=== PATIENT | female | born 1995 | race Hispanic/Latino ===

== ENCOUNTER 2021-07-22 11:43 | Emergency (ER) | payer SELFPAY ==
[2021-07-22 11:48] VITALS: BP 148/92
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
== END 2021-07-22 12:30 | disposition left against medical advice (07) ==
LOC: ED 11:43
DX: S00.01XA Abrasion of scalp, initial encounter (principal); M54.2 Cervicalgia; M25.511 Pain in right shoulder; Y08.89XA Assault by other specified means, initial encounter; Y93.89 Activity, other specified; Y92.89 Other specified places as the place of occurrence of the external cause; Y99.8 Other external cause status
CPT/HCPCS: 99282

== ENCOUNTER 2021-08-20 01:13 | Emergency (ER) | payer SELFPAY ==
[2021-08-20 01:40] LABS: Alanine Aminotransferase 9 units/L (7-56); Albumin 4.4 g/dL (3.9-5); Blood Urea Nitrogen 6 mg/dL (7-17); Calcium 9.4 mg/dL (8.4-10.2)
[2021-08-20 01:41] LABS: BUN/Creatinine Ratio 9
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
[2021-08-20] MEDS ORDERED: SODIUM CHLORIDE 0.9% 1000 ML 1,000 ML IV ONE (01:48)
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
[2021-08-20 02:10] LABS: Basophils % (Auto) 0.5 % (0.0-1.8); Eosinophils # (Auto) 0.1 K/mm3 (0.0-0.4); Eosinophils % (Auto) 1.4 % (0.0-4.3); Hematocrit 37.7 % (30.3-42.9); Hemoglobin 12.6 gm/dl (10.1-14.3); Lymphocytes # (Auto) 2.1 K/mm3 (1.2-5.4); Mean Corpuscular HGB Conc 33 % (30-34); Mean Corpuscular Volume 93 fl (79-97); Monocytes # (Auto) 0.6 K/mm3 (0.0-0.8); Monocytes % (Auto) 8.5 % (0.0-7.3); Platelet Count 197 K/mm3 (140-440); Red Blood Count 4.06 M/mm3 (3.65-5.03); Red Cell Distribution Width 13.4 % (13.2-15.2)
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
[2021-08-20] MEDS ORDERED: KETOROLAC 30 MG/1 ML INJ IV ONE (05:09)
[2021-08-20 07:07] VITALS: BP 104/64
== END 2021-08-20 07:07 | disposition home or self-care (01) ==
LOC: ED 01:13
DX: S49.92XA Unspecified injury of left shoulder and upper arm, initial encounter (principal); F20.9 Schizophrenia, unspecified; Z79.899 Other long term (current) drug therapy; V87.7XXA Person injured in collision between other specified motor vehicles (traffic), initial encounter; Y93.89 Activity, other specified; Y92.488 Other paved roadways as the place of occurrence of the external cause; Y99.8 Other external cause status
CPT/HCPCS: 36415; 70450; 72125; 73030; 73562; 80053; 84703; 85025; 86850; 86900; 86901; 96361; 96374; 99285; J1885; 80320; G0480

== ENCOUNTER 2021-09-12 10:14 | Emergency (ER) | payer SELFPAY ==
[2021-09-12 10:22] VITALS: BP 110/79
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
--- NOTE | 2021-09-12 12:34 | XRay Report ---
XR shoulder 2+V LT INDICATION / CLINICAL INFORMATION: Shoulder deformity/pain x 2 weekxs. COMPARISON: 08/20/2021 FINDINGS: There is superior displacement of the distal clavicle with increased coracoclavicular distance. No fr acture. Joint spaces are preserved. No destructive osseous lesion or suspicious periosteal reaction. Impression: 1. Left acromioclavicular joint injury. Signer Name: Zach Escalante MD Signed: 09/12/2021 12:30 PM Workstation Name: [id number]
== END 2021-09-13 05:39 | disposition left against medical advice (07) ==
LOC: ED 10:14
DX: S43.109A Unspecified dislocation of unspecified acromioclavicular joint, initial encounter (principal); F20.9 Schizophrenia, unspecified
CPT/HCPCS: 99282

== ENCOUNTER 2021-09-18 00:46 | Emergency (ER) | payer SELFPAY ==
[2021-09-18 00:54] VITALS: BP 123/79
== END 2021-09-18 01:20 ==
LOC: ED 00:46
DX: Z00.00 Encounter for general adult medical examination without abnormal findings (principal); Z53.21 Procedure and treatment not carried out due to patient leaving prior to being seen by health care provider

== ENCOUNTER 2021-11-10 06:43 | Emergency (ER) | payer SELFPAY ==
[2021-11-10 07:08] VITALS: BP 105/74
== END 2021-11-10 08:02 ==
LOC: ED 06:43
DX: R53.81 Other malaise (principal); Z53.21 Procedure and treatment not carried out due to patient leaving prior to being seen by health care provider

== ENCOUNTER 2021-11-10 09:57 | Emergency (ER) | payer SELFPAY ==
[2021-11-10 10:15] VITALS: BP 114/69
[2021-11-10] MEDS ORDERED: IBUPROFEN 600 MG TAB PO ONE (10:36)
--- NOTE | 2021-11-10 10:44 | Emergency Department Report ---
ED General Adult HPI - General Chief complaint: Sore Throat Stated complaint: IN PAIN Time Seen by Provider: 11/10/21 10:16 Source: patient Mode of arrival: Ambulatory Limitations: No Limitations - History of Present Illness Initial comments: Patient is a 26-year-old female presents emergency room complaints of multiple complaints. She states that her first complaint is generalized body pain for several months. She states that she has been going to [place] but has never followed up with a primary care doctor. She states over the last several days s he has had throat discomfort and ear discomfort. She denies any ear drainage, hearing changes, ear bleeding, fever, vomiting, diarrhea, shortness of breath, cough. Patient's next complaint is acute on chronic left shoulder pain. She reports that she needs to have surgery on this shoulder but has not followed up with orthopedic doctor. She states that her shoulder has been causing her pain. She denies any acute fall or injury. She denies any numbness or weakness. She states her pain is increased with movement. Patient's third complaint is that she needs a shampoo prescribed for her seborrheic dermatitis. She states that her scalp has been itching. Patient has an allergy to penicillin and sulfa. - Related Data Previous Rx's Medication Instructions Recorded Last Taken Type Ibuprofen [Motrin] 600 mg PO Q8H PRN #30 tablet 09/12/21 Unknown Rx Ketoconazole [Nizoral A-D] 1 applicatio TP ONCE #1 bottle 11/10/21 Unknown Rx Naproxen 375 mg PO BID PRN #14 tab 11/10/21 Unknown Rx Nystatin [Nystatin SUSP] 10 ml PO TID #300 ml 11/10/21 Unknown Rx Allergies Allergy/AdvReac Type Severity Reaction Status Date / Time Penicillins Allergy Hives Verified 11/10/21 10:13 Sulfa (Sulfonamide Allergy Hives Verified 11/10/21 10:13 Antibiotics) ED Review of Systems ROS: Stated complaint: IN PAIN Other details as noted in HPI Comment: All other systems reviewed and negative ED Past Medical Hx - Past Medical History Hx Psychiatric Treatment: Yes (schizophrenia) Additional medical history: hypotension - Surgical History Additional Surgical History: Patient will not answer because she is uncooperat hayes - Social History Smoking Status: Unknown if ever smoked Substance Use Type: None - Medications Home Medications: Home Medications Medication Instructions Recorded Confirmed Last Taken Type Ibuprofen [Motrin] 600 mg PO Q8H PRN #30 tablet 09/12/21 Unknown Rx Ketoconazole [Nizoral A-D] 1 applicatio TP ONCE #1 bottle 11/10/21 Unknown Rx Naproxen 375 mg PO BID PRN #14 tab 11/10/21 Unknown Rx Nystatin [Nystatin SUSP] 10 ml PO TID #300 ml 11/10/21 Unknown Rx ED Physical Exam - General Limitations: No Limitations General appearance: alert, in no apparent distress - Head Head exam: Present: atraumatic, normocephalic - Eye Eye exam: Present: normal appearance - ENT ENT exam: Present: mucous membranes moist, other (thick white plaque present to the tongue, mild oropharynx erythema with small white plaques) - Respiratory Respiratory exam: Present: normal lung sounds bilaterally. Absent: respiratory distress, wheezes, rales, rhonchi, stridor, chest wall tenderness, accessory muscle use, decreased breath sounds, prolonged expiratory - Cardiovascular Cardiovascular Exam: Present: regular rate, normal rhythm, normal heart sounds. Absent: systolic murmur, diastolic murmur, rubs, gallop - Extremities Exam Extremities exam: Present: other (ttp to the left anterior shoulder, FROM of the left shoulder with pain upon flexion, neurovascularly intact) - Neurological Exam Neurological exam: Present: alert, oriented X3 - Psychiatric Psychiatric exam: Present: normal affect, normal mood - Skin Skin exam: Present: warm, dry, intact ED Course Vital Signs 11/10/21 10:14 Temperature 98.1 F Pulse Rate 98 H Respiratory 16 Rate Blood Pressure 114/69 [Right] O2 Sat by Pulse 98 Oximetry ED Medical Decision Making - Lab Data Result diagrams: 11/10/21 10:59 11/10/21 10:59 Lab Results 11/10/21 11/10/21 Range/Units 10:59 10:59 WBC 13.1 H (4.5-11.0) K/mm3 RBC 4.34 (3.65-5.03) M/mm3 Hgb 12.9 (10.1-14.3) gm/dl Hct 39.7 (30.3-42.9) % MCV 91 (79-97) fl MCH 30 (28-32) pg MCHC 32 (30-34) % RDW 13.3 (13.2-15.2) % Plt Count 231 (140-440) K/mm3 Lymph % (Auto) 12.3 L (13.4-35.0) % Bond % (Auto) 8.1 H (0.0-7.3) % Eos % (Auto) 0.1 (0.0-4.3) % Baso % (Auto) 0.4 (0.0-1.8) % Lymph # (Auto) 1.6 (1.2-5.4) K/mm3 Bond # (Auto) 1.1 H (0.0-0.8) K/mm3 Eos # (Auto) 0.0 (0.0-0.4) K/mm3 Baso # (Auto) 0.1 (0.0-0.1) K/mm3 Seg Neutrophils % 79.1 H (40.0-70.0) % Seg Neutrophils # 10.4 H (1.8-7.7) K/mm3 Sodium 140 (137-145) mmol/L Potassium 4.2 (3.6-5.0) mmol/L Chloride 104.7 (98-107) mmol/L Carbon Dioxide 22 (22-30) mmol/L Anion Gap 18 mmol/L BUN 9 (7-17) mg/dL Glucose 71 (65-100) mg/dL Calcium 9.5 (8.4-10.2) mg/dL Total Bilirubin 0.70 (0.1-1.2) mg/dL AST 15 (5-40) units/L ALT 7 (7-56) units/L Alkaline Phosphatase 62 (35-129) units/L Total Protein 6.9 (6.3-8.2) g/dL Albumin 4.7 (3.9-5) g/dL Albumin/Globulin Ratio 2.1 % - Radiology Data Radiology results: report reviewed Ordering Physician: CELY MCQUEEN Date of Service: 11/10/21 Procedure(s): XR shoulder 2+V LT Accession Number(s): [id number] cc: CELY MCQUEEN Fluoro Time In Minutes: LEFT SHOULDER 3 VIEWS INDICATION: left shoulder pain. COMPARISON: None. IMPRESSION: Superior displacement of the distal clavicle with increased coracoclavicular distance and AC joint which is unchanged. This suggests ligamentous injury in the left shoulder. There is normal articulation at the glenohumeral joint. No acute osseous abnormality or bone lesion is appreciated. Signer Name: Kelvin Carter Jr, MD Signed: 11/10/2021 11:26 AM Workstation Name: [id number] Transcribed By: HEIDI Dictated By: KELVIN CARTER JR, MD Electronically Authenticated By: KELVIN CARTER JR, MD Signed Date/Time: 11/10/211125 DD/ 24 TD/TT: - Medical Decision Making Patient is a 26-year-old female presents emergency room complaints of multiple complaints. She states that her first complaint is generalized body pain for several months. She states that she has been going to [place] but has never followed up with a primary care doctor. She states over the last several days she has had throat discomfort and ear discomfort. She denies any ear drainage, hearing changes, ear bleeding, fever, vomiting, diarrhea, shortness of breath, cough. Patient's next complaint is acute on chronic left shoulder pain. She reports that she needs to have surgery on this shoulder but has not followed up with orthopedic doctor. She states that her shoulder has been causing her pain. She denies any acute fall or injury. She denies any numbness or weakness. She states her pain is increased with movement. Patient's third complaint is that she needs a shampoo prescribed for her seborrheic dermatitis. She states that her scalp has been itching. Patient has an allergy to penicillin and sulfa. Vitals are normal. On exam:thick white plaque present to the tongue, mild oropharynx erythema with small white plaques, ttp to the left anterior shoulder, FROM of the left shoulder with pain upon flexion, neurovascularly intact. Labs with nonspecific mild leukocytosis, otherwise normal, she has no fever, no tachycardia, no signs of any infection, could be inflammatory in nature. X-ray left shoulder Superior displacement of the distal clavicle with increased coracoclavicular distance and AC joint which is unchanged. This suggests ligamentous injury in the left shoulder. There is normal articulation at the glenohumeral joint. No acute osseous abnormality or bone lesion is appreciated. It appears patient's previous x-rays have also shown this finding and she has not followed up with orthopedic. I ordered for patient to have a shoulder immobilizer. I went to discuss all findings with patient for discharge and I was advised by nurse that she left AMA and nurse had patient sign AMA form. Patient has eloped from the emergency department. Critical care attestation.: If time is entered above; I have spent that time in minutes in the direct care of this critically ill patient, excluding procedure time. ED Disposition Clinical Impression: Generalized body aches, Oropharyngeal candidiasis, Seborrheic dermatitis Acromioclavicular joint separation Qualifiers: Encounter type: subsequent encounter Laterality: left Qualified Code(s): S43.102D - Unspecified dislocation of left acromioclavicular joint, subsequent encounter Disposition: 07 LEFT AWOL/ELOPED Is pt being admited?: No Does the pt Need Aspirin: No Condition: Stable Instructions: Seborrheic Dermatitis, Adult, Oral Thrush, Adult, Acromioclavicular Separation Additional Instructions: please follow-up with a primary care doctor. Please follow-up with orthopedic doctor. Return to emergency room for any new or worsening symptoms. Prescriptions: Naproxen 375 mg PO BID PRN #14 tab PRN Reason: pain Ketoconazole [Nizoral A-D] 1 applicatio TP ONCE #1 bottle Nystatin [Nystatin SUSP] 10 ml PO TID #300 ml Referrals: JAQUELIN HOPE MD [Staff Physician] - 3-5 Days [facility] [Provider Group] - 3-5 Days KAVIN NDIAYE MD [Staff Physician] - 3-5 Days Time of Disposition: 11:47 Print Language: PASHTO
[2021-11-10 11:17] LABS: Basophils # (Auto) 0.1 K/mm3 (0.0-0.1); Basophils % (Auto) 0.4 % (0.0-1.8); Eosinophils % (Auto) 0.1 % (0.0-4.3); Hematocrit 39.7 % (30.3-42.9); Hemoglobin 12.9 gm/dl (10.1-14.3); Lymphocytes # (Auto) 1.6 K/mm3 (1.2-5.4); Lymphocytes % (Auto) 12.3 % (13.4-35.0); Mean Corpuscular HGB Conc 32 % (30-34); Mean Corpuscular Volume 91 fl (79-97); Monocytes # (Auto) 1.1 K/mm3 (0.0-0.8); Monocytes % (Auto) 8.1 % (0.0-7.3); Platelet Count 231 K/mm3 (140-440); Red Blood Count 4.34 M/mm3 (3.65-5.03); Red Cell Distribution Width 13.3 % (13.2-15.2)
--- NOTE | 2021-11-10 11:31 | XRay Report ---
LEFT SHOULDER 3 VIEWS INDICATION: left shoulder pain. COMPARISON: None. IMPRESSION: Superior displacement of the distal clavicle with increased coracoclavicular distance an d AC joint which is unchanged. This suggests ligamentous injury in the left shoulder. There is normal articulation at the glenohumeral joint. No acute osseous abnormality or bone lesion is appreciated. Signer Name: Kelvin Carter Jr, MD Signed: 11/10/2021 11:26 AM Workstation Name: [id number]
[2021-11-10 11:36] LABS: Alanine Aminotransferase 7 units/L (7-56); Albumin 4.7 g/dL (3.9-5); Blood Urea Nitrogen 9 mg/dL (7-17); Calcium 9.5 mg/dL (8.4-10.2); Hemolysis Index 9
[2021-11-10 11:45] LABS: BUN/Creatinine Ratio 15
== END 2021-11-10 11:30 | disposition left against medical advice (07) ==
LOC: ED 09:57
DX: S43.102A Unspecified dislocation of left acromioclavicular joint, initial encounter (principal); B37.0 Candidal stomatitis; L21.9 Seborrheic dermatitis, unspecified; M79.18 Myalgia, other site; F20.9 Schizophrenia, unspecified; Z88.0 Allergy status to penicillin; Z88.2 Allergy status to sulfonamides; Z79.899 Other long term (current) drug therapy; X58.XXXA Exposure to other specified factors, initial encounter; Y93.89 Activity, other specified; Y92.89 Other specified places as the place of occurrence of the external cause; Y99.8 Other external cause status
CPT/HCPCS: 36415; 80053; 85025; 99283

== ENCOUNTER 2021-11-25 12:32 | Emergency (ER) | payer SELFPAY ==
--- NOTE | 2021-11-25 14:15 | Event Note ---
Face to Face: For this encounter I have reviewed the PA/LARDER COOK documentation, treatment plan, medical decision making, and I had face to face time with this patient. I evaluated patient. Patient has a retained tampon. She has a history of schizophrenia. However she denies suicidal homicidal ideation. She denies hallucinations. My colleague will treat the patient accordingly. I anticipate discharge after pelvic exam and foreign body removal.
--- NOTE | 2021-11-25 14:42 | Emergency Department Report ---
ED Female HPI - General Chief complaint: Psych Stated complaint: vaginal bleeding Time Seen by Provider: 11/25/21 14:03 Source: EMS Mode of arrival: Ambulatory Limitations: No Limitations - History of Present Illness Initial comments: 26-year-old female with a history of schizophrenia presents to the ED complaining that she has a step of tampons stuck inside of her. Patient states that she put a tampon in 2 days ago and did not recall removing it. Patient denies any vaginal discharge ,abdominal pain or vaginal pain at present. Patient denies any suicidal or homicidal ideation at present. Associated Symptoms: denies other symptoms - Related Data Sexually active: No Previous Rx's Medication Instructions Recorded Last Taken Type Ibuprofen [Motrin] 600 mg PO Q8H PRN #30 tablet 09/12/21 Unknown Rx Ketoconazole [Nizoral A-D] 1 applicatio TP ONCE #1 bottle 11/10/21 Unknown Rx Naproxen 375 mg PO BID PRN #14 tab 11/10/21 Unknown Rx Nystatin [Nystatin SUSP] 10 ml PO TID #300 ml 11/10/21 Unknown Rx Allergies Allergy/AdvReac Type Severity Reaction Status Date / Time Penicillins Allergy Hives Verified 11/25/21 12:36 Sulfa (Sulfonamide Allergy Hives Verified 11/25/21 12:36 Antibiotics) ED Review of Systems ROS: Stated complaint: vaginal bleeding Other details as noted in HPI Constitutional: denies: chills, fever Eyes: denies: eye pain, eye discharge, vision change ENT: denies: ear pain, throat pain Respiratory: denies: cough, shortness of breath, wheezing Cardiovascular: denies: chest pain, palpitations Endocrine: no symptoms reported Gastrointestinal: denies: abdominal pain, nausea, diarrhea Genitourinary: denies: urgency, dysuria, discharge Musculoskeletal: denies: back pain, joint swelling, arthralgia Skin: denies: rash, lesions Neurological: denies: headache, weakness, paresthesias Psychiatric: denies: anxiety, depression Hematological/Lymphatic: denies: easy bleeding, easy bruising ED Past Medical Hx - Past Medical History Previous Medical History?: No Hx Psychiatric Treatment: Yes (schizophrenia) Additional medical history: hypotension - Surgical History Additional Surgical History: Patient will not answer because she is uncooperative - Social History Smoking Status: Unknown if ever smoked Substance Use Type: None - Medications Home Medications: Home Medications Medication Instructions Recorded Confirmed Last Taken Type Ibuprofen [Motrin] 600 mg PO Q8H PRN #30 tablet 09/12/21 Unknown Rx Ketoconazole [Nizoral A-D] 1 applicatio TP ONCE #1 bottle 11/10/21 Unknown Rx Naproxen 375 mg PO BID PRN #14 tab 11/10/21 Unknown Rx Nystatin [Nystatin SUSP] 10 ml PO TID #300 ml 11/10/21 Unknown Rx ED Physical Exam - General Limitations: No Limitations General appearance: alert, in no apparent distress - Head Head exam: Present: atraumatic, normocephalic - Eye Eye exam: Present: normal appearance - ENT ENT exam: Present: mucous membranes moist - Neck Neck exam: Present: normal inspection - Respiratory Respiratory exam: Present: normal lung sounds bilaterally. Absent: respiratory distress - Cardiovascular Cardiovascular Exam: Present: regular rate, normal rhythm. Absent: systolic murmur, diastolic murmur, rubs, gallop - GI/Abdominal GI/Abdominal exam: Present: soft, normal bowel sounds - Extremities Exam Extremities exam: Present: normal inspection - Back Exam Back exam: Present: normal inspection - Neurological Exam Neurological exam: Present: alert, oriented X3 - Psychiatric Psychiatric exam: Present: normal affect, normal mood - Skin Skin exam: Present: warm, dry, intact, normal color. Absent: rash ED Medical Decision Making - Medical Decision Making 26-year-old female with a history of schizophrenia presents to the ED complaining that she has a step of tampons stuck inside of her. Patient states that she put a tampon in 2 days ago and did not recall removing it. Patient denies any vaginal discharge ,abdominal pain or vaginal pain at present. Patient denies any suicidal or homicidal ideation at present. Pelvic exam performed no tampon noted. Discussed planning with patient verbalized understanding. Rechecked the patient is resting quietly quietly and comfortable and feeling better. I discussed the results of diagnostic study, my clinical impression and the plan for further treatment with the patient. Patient agrees with plan and discharge at this present time. All question addressed. I have given the patient instruction regarding a diagnosis ,expectation ,follow- up and return precaution. I explained to the patient that emergent condition may arise and to return to the ED for new worsen and any new persisting condition. I have explained the importance of following up with the primary care physician or referral physician listed below has instructed. The patient verbalized understanding of discharge instruction. Critical care attestation.: If time is entered above; I have spent that time in minutes in the direct care of this critically ill patient, excluding procedure time. ED Disposition Clinical Impression: Normal physical exam, routine Disposition: 01 HOME / SELF CARE / HOMELESS Is pt being admited?: No Does the pt Need Aspirin: No Condition: Stable Instructions: Toxic Shock Syndrome, Adult Additional Instructions: Wear maxi pad rather than tampons Follow ED for any worsening symptoms Referrals: PRIMARY CARE, [Primary Care Provider] - 3-5 Days [facility] [Provider Group] - 3-5 Days
[2021-11-25 14:49] VITALS: BP 110/72
== END 2021-11-25 16:04 | disposition home or self-care (01) ==
LOC: ED 12:32
DX: Z00.00 Encounter for general adult medical examination without abnormal findings (principal); F20.9 Schizophrenia, unspecified; Z88.0 Allergy status to penicillin; Z88.2 Allergy status to sulfonamides; Z79.899 Other long term (current) drug therapy
CPT/HCPCS: 99282